=== PATIENT | female | born 1960 | race Caucasian/White ===

== ENCOUNTER 2022-02-07 19:23 | Emergency (ER) | payer BC ==
[~2022-02-07] VITALS: Ht 162.6 cm; Wt 76.2 kg
[~2022-02-07 19:23] MED LIST: Z.0.SERTRALINE HCL50 PO
[2022-02-07] MEDS ORDERED: ASPIRIN 81 MG CHEW TAB PO ONE (19:45)
[2022-02-07 20:18] LABS: AMPHETAMINES SCREEN,URINE NEGATIVE (NEGATIVE); BENZODIAZEPINES SCREEN,URINE NEGATIVE (NEGATIVE); PHENCYCLIDINE SCREEN,URINE NEGATIVE (NEGATIVE)
[2022-02-07 20:26] LABS: BASOPHILS # (AUTO) 0.1 (0.0-0.1); BASOPHILS % 0.5 % (0.0-1.0); EOSINOPHILS # (AUTO) 0.2 (0.0-0.4); EOSINOPHILS % 1.1 % (0.0-6.0); HEMATOCRIT 42.4 % (34.2-44.1); HEMOGLOBIN 13.9 g/dL (12.0-16.0); LYMPHOCYTES # (AUTO) 3.4 (1.0-3.2); LYMPHOCYTES % 22.8 % (18.0-39.1); MEAN CORPUSCULAR HEMOGLOBIN 31.4 pg (28-32); MEAN CORPUSCULAR HGB CONC 32.8 g/dL (31-35); MEAN CORPUSCULAR VOLUME 95.7 fL (81-99); MONOCYTES # (AUTO) 1.1 (0.2-0.8); MONOCYTES % 7.2 % (4.4-11.3); NEUTROPHILS # (AUTO) 10.3 (2.1-6.9); PLATELET COUNT 266 x10e3/uL (140-360); RED BLOOD COUNT 4.43 x10e6/uL (3.6-5.1); RED CELL DISTRIBUTION WIDTH 14.4 % (11.7-14.4)
[2022-02-07 20:40] LABS: ALANINE AMINOTRANSFERASE 21 IU/L (0-55); ALBUMIN 3.7 g/dL (3.5-5.0); ALBUMIN/GLOBULIN RATIO 1.2 (0.8-2.0); ALKALINE PHOSPHATASE 59 IU/L (40-150); ANION GAP 16.4 mmol/L (8-16); BLOOD UREA NITROGEN 8 mg/dL (7-26); BUN/CREATININE RATIO 10 (6-25); CALCIUM 9.2 mg/dL (8.4-10.2); CARBON DIOXIDE 23 mmol/L (22-29); CHLORIDE 101 mmol/L (98-107); CREATINE KINASE 53 IU/L (29-168); CREATININE, SERUM 0.84 mg/dL (0.57-1.11); GLUCOSE 131 mg/dL (74-118); POTASSIUM 3.4 mmol/L (3.5-5.1); SODIUM 137 mmol/L (136-145)
[2022-02-07 21:25] LABS: CREATINE KINASE 52 IU/L (29-168)
[2022-02-07 22:02] VITALS: BP 122/68
== END 2022-02-07 22:05 | disposition home or self-care (01) ==
LOC: ER 19:34
DX: R07.89 Other chest pain (principal); R06.02 Shortness of breath; M79.7 Fibromyalgia; R94.31 Abnormal electrocardiogram [ECG] [EKG]; F17.210 Nicotine dependence, cigarettes, uncomplicated
CPT/HCPCS: 36415; 71045; 80053; 80307; 82550; 82553; 83690; 83880; 84484; 85025; 85379; 93005; 99284; U0002